=== PATIENT | female | born 1960 | race Caucasian/White ===

== ENCOUNTER 2017-08-23 21:04 | Emergency (ER) | payer OTHER ==
[~2017-08-23] VITALS: Ht 160 cm; Wt 72.6 kg
[~2017-08-23 21:04] MED LIST: ACCUPRIL40 MG PO; ACETAMINOPHEN325 M1 PO; ASPIR-LOW81 MG PO; ATIVAN1 MG; CALCIUM 600 +1 EA11 PO; CARAFATE 1 GM TA1 G1 PO; CEPHALEXIN 250250 M1 PO; COLACE100 MG PO; COMPAZINE10 MG PO; DESYREL50 MG PO; EXCEDRIN CAPLE1 EACH PO; FERRO-TIME325 MG PO; FERROUS SULFAT325 MG PO; FLEXERIL PO; HYDROCHLOROTHIA25 M1 PO; HYDROCODON-ACE1 EAC7 PO; IBUPROFEN 600600 M1 PO; INTUNIV3 MG PO; IRON325 PO; K-DUR 20 MEQ T20 MEQ PO; LISINOPRIL-HCT1 EAC2 PO; LOPRESSOR25 PO; LOTENSIN40 MG PO; NORVASC10 MG PO; OMEPRAZOLE 20 M20 MG PO; OMEPRAZOLE PO; PRILOSEC 20 MG20 MG PO; PROAIR HFA8.5 GM IH; PROMETHAZINE12.5 M1 PO; PROPRANOLOL 1010 M1 PO; PROPRANOLOL 8080 MG PO; TOBRAMYCIN SULFA5 M1 OP; TRAMADOL 50 MG50 MG PO
[2017-08-23] MEDS ORDERED: AMLODIPINE BESYL5 MG PO (21:25)
[2017-08-23] MEDS ORDERED: HYDROCHLOROTHIA25 M2 PO (21:25)
[2017-08-23] MEDS ORDERED: KEFLEX500 M1 PO (21:41)
[2017-08-23 22:35] VITALS: BP 132/68
== END 2017-08-23 22:36 | disposition home or self-care (01) ==
LOC: M.ERS 21:04
DX: K04.7 Periapical abscess without sinus (principal); J45.909 Unspecified asthma, uncomplicated; F17.210 Nicotine dependence, cigarettes, uncomplicated; Z88.0 Allergy status to penicillin

== ENCOUNTER 2017-10-17 18:56 | Emergency (ER) | payer OTHER ==
[~2017-10-17] VITALS: Ht 162.6 cm; Wt 65.8 kg
[~2017-10-17 18:56] MED LIST changes: +AMLODIPINE BESYL5 MG PO; +HYDROCHLOROTHIA25 M2 PO; +KEFLEX500 M1 PO
[2017-10-17 19:08] VITALS: BP 149/77
[2017-10-17] MEDS ORDERED: PROTONIX40 M1 PO (19:12)
[2017-10-17] MEDS ORDERED: LIDOCAINE VISC100 ML PO (19:19)
[2017-10-17] MEDS ORDERED: IBUPROFEN 800800 MG PO (19:19)
[2017-10-17] MEDS ORDERED: NORCO 5-325 TA1 EACH PO (19:19)
[2017-10-17] MEDS ORDERED: CLEOCIN HCL150 MG PO (19:19)
== END 2017-10-17 19:36 | disposition home or self-care (01) ==
LOC: M.ERS 18:56
DX: K04.7 Periapical abscess without sinus (principal); K08.89 Other specified disorders of teeth and supporting structures; J45.909 Unspecified asthma, uncomplicated; F17.210 Nicotine dependence, cigarettes, uncomplicated; Z98.890 Other specified postprocedural states; Z90.710 Acquired absence of both cervix and uterus; Z88.0 Allergy status to penicillin; Z88.7 Allergy status to serum and vaccine